=== PATIENT | male | born 1985 | race Caucasian/White ===

== ENCOUNTER 2016-11-10 13:51 | Emergency (ER) | payer OTHER ==
[2016-11-10 13:55] VITALS: BP 155/98; PULSE 102; RESP 20; TEMP 98.2
--- NOTE | 2016-11-10 14:15 | ED ---
General Adult HPI - General Chief complaint: Extremity Injury, Lower Stated complaint: left knee injury Time Seen by Provider: 11/10/16 13:58 Source: patient, RN notes reviewed Mode of arrival: wheelchair Limitations: no limitations - History of Present Illness Initial comments: Patient's 31-year-old male who presents emergency room today with chief complaint of injury to the left knee that occurred just prior to arrival. Patient does admit that he was standing on a deck when his left leg went through the sports. He states his legs date she rate and his body went to the to the left. He does admit to increased pain over the lateral anterior aspect. He does admit that it's worse with movements and with ambulation. Patient denies any other injuries or complaints. Patient denies any recent fever, chills , shortness of breath, chest pain, back pain, abdominal pain, nausea or vomiting , numbness or tingling, dysuria or hematuria, constipation or diarrhea, headaches or visual changes, or any other complaints. - Related Data Home Medications Medication Instructions Recorded Confirmed HYDROcodone/APAP 10-325MG [[place] 1 tab PO Q6HR 11/10/16 11/10/16 10-325] Previous Rx's Medication Instructions Recorded Ibuprofen [Motrin] 600 mg PO Q6HR PRN #40 day 11/10/16 Allergies Allergy/AdvReac Type Severity Reaction Status Date / Time ketorolac tromethamine AdvReac FEVER, Verified 11/10/16 14:28 [From Toradol] CHILLS tramadol AdvReac HEADACHE Verified 11/10/16 14:28 Review of Systems ROS Statement: Those systems with pertinent positive or pertinent negative responses have been documented in the HPI. ROS Other: All systems not noted in ROS Statement are negative. Past Medical History Past Medical History: Asthma Additional Past Medical History / Comment(s): back pain, previous third degree shoulder seperation. bilateral knee pain History of Any Multi-Drug Resistant Organisms: None Reported Past Surgical History: No Surgical Hx Reported Past Psychological History: No Psychological Hx Reported Smoking Status: Current every day smoker Past Alcohol Use History: Occasional Past Drug Use History: None Reported General Exam - General Exam Comments Initial Comments: General: The patient is awake and alert, in no distress, and does not appear acutely ill. Neck: The neck is supple, there is no tenderness or JVD. Cardiovascular: There is a regular rate and rhythm. No murmur, rub or gallop is appreciated. Respiratory: Lungs are clear to auscultation, respirations are non-labored, breath sounds are equal. No wheezes, stridor, rales, or rhonchi. Musculoskeletal: Normal appearance of the left knee no obvious deformity. Shows limited range of motion due to pain. It is locally tender over the anterior lateral aspect. Sensation is intact pulses equal bilaterally 2+. No bony tenderness down into the left foot and left ankle. No tenderness to the left hip. Neurological: A&O x 3. CN II-XII intact, There are no obvious motor or sensory deficits. Coordination appears grossly intact. Speech is normal. Skin: Skin is warm and dry and no rashes or lesions are noted. Psychiatric: Normal mood and affect. Limitations: no limitations Course Vital Signs 11/10/16 13:53 Temperature 98.2 F Pulse Rate 102 H Respiratory 20 Rate Blood Pressure 155/98 O2 Sat by Pulse 94 L Oximetry Medical Decision Making - Medical Decision Making X-rays reviewed and are negative for any acute fracture dislocation. Results were discussed with the patient. Patient is advised to follow-up with orthopedics for further evaluation. Advised possible ligamentous injury. Will be placed in knee immobilizer here in the emergency room. Given a prescription for crutches. Advised return to emergency room if any symptoms increase worsen or for any other concerns. Patient denies any recent fever, chills, shortness of breath, chest pain, back pain, abdominal pain, nausea or vomiting, numbness or tingling, dysuria or hematuria, constipation or diarrhea, headaches or visual changes, or any other complaints. Disposition Clinical Impression: Knee injury Disposition: HOME SELF-CARE Condition: Good Instructions: Knee Pain (ED) Additional Instructions: Please use knee immobilizer up and moving around. Please use crutches with weightbearing as tolerated. Please follow-up the orthopedics over the next 2-5 day. Please continue to ice elevate the affected area at least 4 times a day for 20 minutes at a time. Please use ibuprofen for pain. Please return to emergency room if any symptoms increase worsen or for any other concerns. Prescriptions: Ibuprofen [Motrin] 600 mg PO Q6HR PRN #40 day PRN Reason: Pain Referrals: None,Stated [Primary Care Provider] - 1-2 days Girma Garcia MD [STAFF PHYSICIAN] - 1-2 days Time of Disposition: 14:46
--- NOTE | 2016-11-10 14:26 | XR ---
EXAMINATION TYPE: XR knee complete LT DATE OF EXAM: 11/10/2016 2:20 PM CLINICAL HISTORY: pain TECHNIQUE: Three views of the left knee are obtained. COMPARISON: September 14, 2015 FINDINGS: There is no acute fracture/dislocation. The tri-compartment joint spaces appear within no rmal limits. The overlying soft tissue appears unremarkable. IMPRESSION: There is no acute fracture or dislocation ICD 10 NO FRACTURE, INITIAL EVALUATION
== END 2016-11-10 14:58 | disposition home or self-care (01) ==
LOC: EC 13:51
DX: S89.92XA Unspecified injury of left lower leg, initial encounter (principal); F17.200 Nicotine dependence, unspecified, uncomplicated; Z79.891 Long term (current) use of opiate analgesic; Z88.6 Allergy status to analgesic agent; X58.XXXA Exposure to other specified factors, initial encounter
CPT/HCPCS: 73562; 99283; L1830 ×2

== ENCOUNTER 2016-12-09 10:48 | Emergency (ER) | payer OTHER ==
[2016-12-09 10:51] VITALS: RESP 18; TEMP 98.2
[2016-12-09] MEDS ORDERED: HYDROmorphone 1 MG/ML 1 ML SYRINGE IVP STA (11:02)
[2016-12-09] MEDS ORDERED: ONDANSETRON 4 MG/2 ML VIAL IVP STA (11:02)
[2016-12-09] MEDS ORDERED: SODIUM CHLORIDE 0.9% 1,000 ML IV ONE (11:02)
--- NOTE | 2016-12-09 11:05 | ED ---
Abdominal Pain HPI - General Chief Complaint: Abdominal Pain Stated Complaint: abdominal pain Time Seen by Provider: 12/09/16 10:54 Source: patient, RN notes reviewed Mode of arrival: wheelchair Limitations: no limitations - History of Present Illness Initial Comments: Patient is a 31-year-old male presents to the emergency room for evaluation of nausea and abdominal pain. Patient states pain began about 30 minutes ago. Patient states yesterday began with vomiting and diarrhea. Patient states when the pain began began vomiting. Patient states he's having severe pain in his right lower quadrant. Patient states the pain is worse when he presses over the area. Patient denies history of abdominal surgeries. Patient denies fevers or chills. Patient denies chest pain or shortness of breath. Patient denies blood in stools. Patient denies pain or burning during urination, trouble urinating or blood in urine. Patient denies history of kidney stone. Patient denies any back or flank pain. - Related Data Home Medications Medication Instructions Recorded Confirmed HYDROcodone/APAP 10-325MG [[place] 1 tab PO QID PRN 11/10/16 12/09/16 10-325] Previous Rx's Medication Instructions Recorded Dicyclomine [Bentyl] 10 mg PO TID PRN #12 capsule 12/09/16 Ondansetron Odt [Zofran Odt] 4 mg PO Q8HR PRN #12 tab 12/09/16 Allergies Allergy/AdvReac Type Severity Reaction Status Date / Time ketorolac tromethamine AdvReac FEVER, Verified 12/09/16 11:38 [From Toradol] CHILLS tramadol AdvReac HEADACHE Verified 12/09/16 11:38 Review of Systems ROS Statement: Those systems with pertinent positive or pertinent negative responses have been documented in the HPI. ROS Other: All systems not noted in ROS Statement are negative. Past Medical History Past Medical History: Asthma Additional Past Medical History / Comment(s): back pain, previous third degree shoulder seperation. bilateral knee pain History of Any Multi-Drug Resistant Organisms: None Reported Past Surgical History: No Surgical Hx Reported Past Psychological History: No Psychological Hx Reported Smoking Status: Current every day smoker Past Alcohol Use History: Occasional Past Drug Use History: None Reported General Exam - General Exam Comments Initial Comments: laying in exam room, no distress. Limitations: no limitations General appearance: alert, in no apparent distress Head exam: Present: atraumatic, normocephalic, normal inspection Eye exam: Present: normal appearance ENT exam: Present: normal exam Neck exam: Present: normal inspection Respiratory exam: Present: normal lung sounds bilaterally. Absent: respiratory distress Cardiovascular Exam: Present: regular rate, normal rhythm, normal heart sounds GI/Abdominal exam: Present: soft, tenderness (right lower quadrant), normal bowel sounds. Absent: distended, guarding, rebound, rigid Extremities exam: Present: normal inspection Back exam: Present: normal inspection Neurological exam: Present: alert, oriented X3, CN II-XII intact, normal gait Psychiatric exam: Present: normal affect, normal mood Skin exam: Present: warm, dry, intact, normal color. Absent: rash Course Vital Signs 12/09/16 12/09/16 10:49 12:48 Temperature 98.2 F 98.2 F Pulse Rate 75 67 Respiratory 18 18 Rate Blood Pressure 119/73 112/66 O2 Sat by Pulse 97 98 Oximetry Medical Decision Making - Medical Decision Making patient is a 31-year-old male presents emergency room for evaluation abdominal pain, nausea and vomiting. Labs show no concerning findings. CT negative for signs of appendicitis. Patient was sent home with Zofran and fentanyl and advised follow-up with primary care provider. Advised patient to return for worsening symptoms. Patient states he understands everything that was discussed with him. Case discussed with Dr. Martin. - Lab Data Result diagrams: 12/09/16 11:10 12/09/16 11:10 Lab Results 12/09/16 12/09/16 12/09/16 Range/Units 11:10 11:10 11:42 WBC 8.3 (3.8-10.6) k/uL RBC 4.74 (4.30-5.90) m/uL Hgb 15.1 (13.0-17.5) gm/dL Hct 44.5 (39.0-53.0) % MCV 93.9 (80.0-100.0) fL MCH 31.8 (25.0-35.0) pg MCHC 33.9 (31.0-37.0) g/dL RDW 13.1 (11.5-15.5) % Plt Count 177 (150-450) k/uL Neutrophils % 75 % Lymphocytes % 18 % Monocytes % 5 % Eosinophils % 2 % Basophils % 0 % Neutrophils # 6.2 (1.3-7.7) k/uL Lymphocytes # 1.5 (1.0-4.8) k/uL Monocytes # 0.4 (0-1.0) k/uL Eosinophils # 0.1 (0-0.7) k/uL Basophils # 0.0 (0-0.2) k/uL Sodium 143 (137-145) mmol/L Potassium 4.2 (3.5-5.1) mmol/L Chloride 111 H (98-107) mmol/L Carbon Dioxide 24 (22-30) mmol/L Anion Gap 8 mmol/L BUN 14 (9-20) mg/dL Creatinine 0.90 (0.66-1.25) mg/dL Est GFR (MDRD) Af Amer >60 (>60 ml/min/1.73 sqM) Est GFR (MDRD) Non-Af >60 (>60 ml/min/1.73 sqM) Glucose 114 H (74-99) mg/dL Calcium 9.1 (8.4-10.2) mg/dL Total Bilirubin 0.3 (0.2-1.3) mg/dL AST 19 (17-59) U/L ALT 34 (21-72) U/L Alkaline Phosphatase 67 (38-126) U/L Total Protein 6.1 L (6.3-8.2) g/dL Albumin 3.4 L (3.5-5.0) g/dL Amylase 37 (30-110) U/L Lipase 56 (23-300) U/L Urine Color Yellow Urine Appearance Clear (Clear) Urine pH 7.5 (5.0-8.0) Ur Specific [place] 1.017 (1.001-1.035) Urine Protein Negative (Negative) Urine Glucose (UA) Negative (Negative) Urine Ketones Negative (Negative) Urine Blood Negative (Negative) Urine Nitrite Negative (Negative) Urine Bilirubin Negative (Negative) Urine Urobilinogen <2.0 (<2.0) mg/dL Ur Leukocyte Esterase Negative (Negative) - Radiology Data Radiology results: report reviewed, image reviewed Disposition Clinical Impression: Abdominal pain, Nausea & vomiting Disposition: HOME SELF-CARE Condition: Good Instructions: Acute Nausea and Vomiting (ED), Abdominal Pain (ED) Additional Instructions: Take Zofran as needed for nausea. Drink plenty of fluids. Please follow up with primary care provider in 1-2 days. If any new symptom arises or symptoms worsen , return to ER as soon as possible. Prescriptions: Ondansetron Odt [Zofran Odt] 4 mg PO Q8HR PRN #12 tab PRN Reason: Nausea Dicyclomine [Bentyl] 10 mg PO TID PRN #12 capsule PRN Reason: Pain Referrals: None,Stated [Primary Care Provider] - 1-2 days Time of Disposition: 12:32
[2016-12-09 11:20] LABS: Basophils % (A) 0 %; CH 32.6; CHCM 34.9; Eosinophils # (A) 0.1 k/uL (0-0.7); Eosinophils % (A) 2 %; HCT 44.5 % (39.0-53.0); HGB 15.1 gm/dL (13.0-17.5); Luc # (Auto) 0.08; Luc % (Auto) 1; Lymphocytes # (A) 1.5 k/uL (1.0-4.8); Lymphocytes % (A) 18 %; MCH 31.8 pg (25.0-35.0); MCHC 33.9 g/dL (31.0-37.0); MCV 93.9 fL (80.0-100.0); Mean Platelet Volume 6.9; Monocytes # (A) 0.4 k/uL (0-1.0); Monocytes % (A) 5 %; Neutrophils # (A) 6.2 k/uL (1.3-7.7); Neutrophils % (A) 75 %; RBC 4.74 m/uL (4.30-5.90); RDW 13.1 % (11.5-15.5); WBC 8.3 k/uL (3.8-10.6); WBC (Perox) 7.77
[2016-12-09 11:34] LABS: ALT 34 U/L (21-72); AST 19 U/L (17-59); Alkaline Phosphatase 67 U/L (38-126); Amylase 37 U/L (30-110); Anion Gap 8 mmol/L; Blood Urea Nitrogen 14 mg/dL (9-20); Calcium 9.1 mg/dL (8.4-10.2); Carbon Dioxide 24 mmol/L (22-30); Chloride 111 mmol/L (98-107); Glucose 114 mg/dL (74-99); Non-African American GFR(MDRD) >60 (>60 ml/min/1.73 sqM); Potassium 4.2 mmol/L (3.5-5.1); Sodium 143 mmol/L (137-145); Total Bilirubin 0.3 mg/dL (0.2-1.3); Total Protein 6.1 g/dL (6.3-8.2)
[2016-12-09 11:54] LABS: Appearance,Urine Clear (Clear); Bilirubin,Urine Negative (Negative); Glucose,Urine (UA) Negative (Negative); Ketones,Urine Negative (Negative); Leukocyte Esterase,Urine Negative (Negative); Nitrite,Urine Negative (Negative); PH, Urine 7.5 (5.0-8.0); Protein,Urine Negative (Negative); Specific Gravity,Urine 1.017 (1.001-1.035); UA Billing (MACRO vs. MICRO) CHEM; Urobilinogen,Urine <2.0 mg/dL (<2.0)
[2016-12-09] MEDS ORDERED: RX INFO: IV CONTRAST WAS GIVEN 1 EACH MISC MISCELLANE PRN (11:57)
--- NOTE | 2016-12-09 12:31 | CT ---
EXAMINATION TYPE: CT abdomen pelvis w con DATE OF EXAM: 12/09/2016 12:26 PM COMPARISON: NONE HISTORY: abdominal pain CT DLP: 3477.7 mGycm Automated exposure control for dose reduction was used. TECHNIQUE: Helical acquisition of images was performed from the lung bases through the pelvis. CONTRAST: Performed without Oral Contrast and with IV Contrast, patient injected with 100 mL of Omnipaque 300. FINDINGS: Lung bases are clear of consolidation. There is no pleural effusion. Liver spleen pancreas gallbladde r appear normal. Bile ducts are not dilated. There is no adrenal mass. Kidneys show satisfactory cont rast opacification. There is no hydronephrosis. There is no retroperitoneal adenopathy. There is no a scites. I see no intestinal wall thickening. There are no dilated loops. Appendix appears normal. The re is no evidence of a bony destructive process. Bladder distends smoothly. There is no sign of a pel beto mass. IMPRESSION: NEGATIVE CT SCAN OF THE ABDOMEN AND PELVIS.
[2016-12-09 12:50] VITALS: BP 112/66; PULSE 67
== END 2016-12-09 12:49 | disposition home or self-care (01) ==
LOC: EC 10:48
DX: R10.31 Right lower quadrant pain (principal); R11.2 Nausea with vomiting, unspecified; R19.7 Diarrhea, unspecified; F17.200 Nicotine dependence, unspecified, uncomplicated; Z88.6 Allergy status to analgesic agent
CPT/HCPCS: 80053; 82150; 83690; 85025; 81003; 74177; 99284; 96374; 96375; 96361; J2405; J1170; Q9967

== ENCOUNTER 2017-03-09 10:54 | Emergency (ER) | payer OTHER ==
--- NOTE | 2017-03-09 11:57 | ED ---
General Adult HPI - General Chief complaint: Extremity Problem,Nontraumatic Stated complaint: fluid retention Time Seen by Provider: 03/09/17 11:38 Source: patient Mode of arrival: ambulatory Limitations: no limitations - History of Present Illness Initial comments: Patient is an obese 32-year-old male who presents to the ED via private vehicle for evaluation of bilateral lower extremity swelling. 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 Patient states that over the past few days he has noticed swelling of his lower extremities worse at his ankles. Has no history of previous swelling like this. He reports that today the skin around his ankles began to feel very tight which prompted him to come in to the ED. Patient denies any fevers, chills, nausea, vomiting, gait disturbance or paresthesias. Patient states that approximately 4 years ago he was told he was prediabetic but since then has not followed with primary care physician for any reason. Patient denies taking any medications. He denies any personal history of DVT or PE, he states that his grandfather had blood clots but he is not sure if there is any other family history of blood clots. He denies any recent immobilization of the limbs though he does state that he spends a lot of his stay in his car. States he has no cardiac history, no chest pain, no shortness of breath. - Related Data Home Medications Medication Instructions Recorded Confirmed HYDROcodone/APAP 10-325MG [[place] 1 tab PO QID PRN 11/10/16 03/09/17 10-325] Allergies Allergy/AdvReac Type Severity Reaction Status Date / Time ketorolac tromethamine AdvReac FEVER, Verified 03/09/17 11:45 [From Toradol] CHILLS tramadol AdvReac HEADACHE Verified 03/09/17 11:45 Review of Systems ROS Statement: Those systems with pertinent positive or pertinent negative responses have been documented in the HPI. ROS Other: All systems not noted in ROS Statement are negative. Constitutional: Denies: fever, chills Eyes: Denies: vision change Respiratory: Denies: cough, dyspnea Cardiovascular: Reports: edema. Denies: chest pain, palpitations, dyspnea on exertion, paroxysmal nocturnal dyspnea Endocrine: Denies: fatigue Gastrointestinal: Denies: abdominal pain, nausea, vomiting Genitourinary: Denies: dysuria Musculoskeletal: Reports: back pain (chronic, unchanged recently ) Skin: Reports: lesions (flea bites on bilateral lower extremities) Neurological: Denies: headache, weakness, numbness, paresthesias, abnormal gait Psychiatric: Denies: anxiety Hematological/Lymphatic: Denies: easy bleeding, easy bruising Past Medical History Past Medical History: Asthma Additional Past Medical History / Comment(s): back pain, previous third degree shoulder seperation. bilateral knee pain History of Any Multi-Drug Resistant Organisms: None Reported Past Surgical History: No Surgical Hx Reported Past Psychological History: No Psychological Hx Reported Smoking Status: Current every day smoker Past Alcohol Use History: Occasional Past Drug Use History: None Reported General Exam Limitations: no limitations General appearance: alert, in no apparent distress, obese Head exam: Present: atraumatic, normocephalic Eye exam: Present: normal appearance ENT exam: Present: normal exam Neck exam: Present: normal inspection. Absent: meningismus Respiratory exam: Present: normal lung sounds bilaterally. Absent: respiratory distress Cardiovascular Exam: Present: regular rate, normal rhythm, normal heart sounds, other (radial, PT, DP pulses 3+) GI/Abdominal exam: Present: soft, normal bowel sounds. Absent: distended, tenderness, guarding, rebound, rigid Rectal exam: Present: deferred Extremities exam: Present: full ROM, normal capillary refill, pedal edema. Absent: tenderness, joint swelling, calf tenderness Back exam: Present: paraspinal tenderness Neurological exam: Present: alert, oriented X3, CN II-XII intact Psychiatric exam: Present: normal affect, normal mood Skin exam: Present: warm, dry, intact, normal color. Absent: rash Course Vital Signs 03/09/17 03/09/17 11:12 13:32 Temperature 97.3 F L 96.9 F L Pulse Rate 83 74 Respiratory 20 16 Rate Blood Pressure 131/72 149/76 O2 Sat by Pulse 98 97 Oximetry Medical Decision Making - Medical Decision Making Patient was seen and examined, patient was sleeping comfortably in the ER prior to being examined. He states that he worked last night is very tired. History was obtained from the patient As ago exam and history are consistent with venous stasis, however given there is a family history of DVTs I will order bilateral venous duplex for evaluation of possible clot. Physical exam with no erythema or skin changes suggestive of cellulitis or infection. Patient does have multiple small red spots on his leg which he advises or flea bites. None appear to be abscessed or cellulitic. 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 I advised the patient to sleep with his legs elevated on pillows. I also discussed with the patient that he would benefit from weight loss. She has pertaining to care were answered to the best my ability and the patient was discharged home and advised to follow up with primary care physician or to return to the ED for any acute worsening. - Lab Data Result diagrams: 03/09/17 12:03 03/09/17 12:03 Lab Results 03/09/17 03/09/17 03/09/17 Range/Units 12:03 12:03 12:03 WBC 9.3 (3.8-10.6) k/uL RBC 4.59 (4.30-5.90) m/uL Hgb 15.1 (13.0-17.5) gm/dL Hct 41.7 (39.0-53.0) % MCV 90.8 (80.0-100.0) fL MCH 33.0 (25.0-35.0) pg MCHC 36.3 (31.0-37.0) g/dL RDW 12.9 (11.5-15.5) % Plt Count 206 (150-450) k/uL Neutrophils % 54 % Lymphocytes % 33 % Monocytes % 6 % Eosinophils % 5 % Basophils % 1 % Neutrophils # 5.0 (1.3-7.7) k/uL Lymphocytes # 3.1 (1.0-4.8) k/uL Monocytes # 0.6 (0-1.0) k/uL Eosinophils # 0.4 (0-0.7) k/uL Basophils # 0.1 (0-0.2) k/uL Sodium 141 (137-145) mmol/L Potassium 4.1 (3.5-5.1) mmol/L Chloride 107 (98-107) mmol/L Carbon Dioxide 26 (22-30) mmol/L Anion Gap 8 mmol/L BUN 15 (9-20) mg/dL Creatinine 1.06 (0.66-1.25) mg/dL Est GFR (MDRD) Af Amer >60 (>60 ml/min/1.73 sqM) Est GFR (MDRD) Non-Af >60 (>60 ml/min/1.73 sqM) Glucose 94 (74-99) mg/dL Calcium 8.9 (8.4-10.2) mg/dL NT-Pro-B Natriuret Pep <11 pg/mL Disposition Clinical Impression: Bilateral lower extremity edema Disposition: HOME SELF-CARE Condition: Good Instructions: Leg Edema (ED) Referrals: None,Stated [Primary Care Provider] - 1-2 days Decision Time: 13:27
[2017-03-09 12:12] LABS: Basophils # (A) 0.1 k/uL (0-0.2); Basophils % (A) 1 %; CH 32.1; CHCM 35.5; Eosinophils # (A) 0.4 k/uL (0-0.7); Eosinophils % (A) 5 %; HCT 41.7 % (39.0-53.0); HDW 2.88; HGB 15.1 gm/dL (13.0-17.5); Luc # (Auto) 0.17; Luc % (Auto) 2; Lymphocytes # (A) 3.1 k/uL (1.0-4.8); Lymphocytes % (A) 33 %; MCHC 36.3 g/dL (31.0-37.0); MCV 90.8 fL (80.0-100.0); Mean Platelet Volume 6.9; Monocytes # (A) 0.6 k/uL (0-1.0); Monocytes % (A) 6 %; Neutrophils % (A) 54 %; RBC 4.59 m/uL (4.30-5.90); RDW 12.9 % (11.5-15.5); WBC 9.3 k/uL (3.8-10.6); WBC (Perox) 9.24
[2017-03-09 12:28] LABS: Anion Gap 8 mmol/L; Blood Urea Nitrogen 15 mg/dL (9-20); Calcium 8.9 mg/dL (8.4-10.2); Carbon Dioxide 26 mmol/L (22-30); Chloride 107 mmol/L (98-107); Glucose 94 mg/dL (74-99); Non-African American GFR(MDRD) >60 (>60 ml/min/1.73 sqM); Potassium 4.1 mmol/L (3.5-5.1); Sodium 141 mmol/L (137-145)
--- NOTE | 2017-03-09 13:14 | US ---
EXAMINATION TYPE: US venous doppler duplex LE BI DATE OF EXAM: 03/09/2017 12:48 PM COMPARISON: NONE CLINICAL HISTORY: 32-year-old male Pain. Bilateral ankle swelling SIDE PERFORMED: Bilateral TECHNIQUE: The lower extremity deep venous system is examined utilizing real time linear array sonog josey with graded compression, doppler sonography and color-flow sonography. FINDINGS: VESSELS IMAGED: External Iliac Vein (EIV) Common Femoral Vein Deep Femoral Vein Greater Saphenous Vein * Femoral Vein Popliteal Vein Small Saphenous Vein * Proximal Calf Veins (* superficial vessels) Right Leg: Negative for DVT Left Leg: Negative for DVT IMPRESSION: No evidence for DVT within the bilateral lower extremities imaged from the groin to the upper calves.
[2017-03-09 13:33] VITALS: BP 149/76; PULSE 74; RESP 16; TEMP 96.9
== END 2017-03-09 13:38 | disposition home or self-care (01) ==
LOC: EC 10:54
DX: R60.0 Localized edema (principal); S80.861A Insect bite (nonvenomous), right lower leg, initial encounter; S80.862A Insect bite (nonvenomous), left lower leg, initial encounter; E66.9 Obesity, unspecified; F17.200 Nicotine dependence, unspecified, uncomplicated; Z88.6 Allergy status to analgesic agent; W57.XXXA Bitten or stung by nonvenomous insect and other nonvenomous arthropods, initial encounter
CPT/HCPCS: 36415; 80048; 83880; 85025; 93970; 99284

== ENCOUNTER 2017-05-18 15:19 | Emergency (ER) | payer OTHER ==
[2017-05-18 15:44] VITALS: BP 142/84; PULSE 76; RESP 16; TEMP 97.8
--- NOTE | 2017-05-18 16:56 | ED ---
General Adult HPI - General Chief complaint: Psychiatric Symptoms Stated complaint: Drug Withdrawls Time Seen by Provider: 05/18/17 16:40 Source: patient, RN notes reviewed Mode of arrival: ambulatory Limitations: no limitations - History of Present Illness Initial comments: 32-year-old male presents to the emergency department with a chief complaint of of wanting help for narcotic abuse. Patient states that he abuses narcotic medication. Patient states his last pill was today. Patient denies any complaints at this time but he states that he needs help. Patient states that he is not suicidal or homicidal. Patient denies any other concerns. Patient denies any recent fever, chills, shortness of breath, chest pain, back pain, abdominal pain, nausea vomiting, numbness or tingling, dysuria or hematuria, constipation or diarrhea, headaches or visual changes, or any other current symptoms. - Related Data Home Medications Medication Instructions Recorded Confirmed HYDROcodone/APAP 10-325MG [[place] 1 tab PO QID PRN 11/10/16 03/09/17 10-325] Previous Rx's Medication Instructions Recorded Ondansetron Odt [Zofran ODT] 4 mg PO Q8HR PRN #20 tab 05/18/17 Allergies Allergy/AdvReac Type Severity Reaction Status Date / Time ketorolac tromethamine AdvReac FEVER, Verified 05/18/17 15:44 [From Toradol] CHILLS tramadol AdvReac HEADACHE Verified 05/18/17 15:44 Review of Systems ROS Statement: Those systems with pertinent positive or pertinent negative responses have been documented in the HPI. ROS Other: All systems not noted in ROS Statement are negative. Past Medical History Past Medical History: Asthma Additional Past Medical History / Comment(s): back pain, previous third degree shoulder seperation. bilateral knee pain History of Any Multi-Drug Resistant Organisms: None Reported Past Surgical History: No Surgical Hx Reported Past Psychological History: No Psychological Hx Reported Smoking Status: Current every day smoker Past Alcohol Use History: Occasional Past Drug Use History: None Reported General Exam Limitations: no limitations General appearance: alert, in no apparent distress Eye exam: Present: normal appearance, PERRL, EOMI. Absent: scleral icterus, conjunctival injection, periorbital swelling ENT exam: Present: normal exam, mucous membranes moist Neck exam: Present: normal inspection. Absent: tenderness, meningismus, lymphadenopathy Respiratory exam: Present: normal lung sounds bilaterally. Absent: respiratory distress, wheezes, rales, rhonchi, stridor Cardiovascular Exam: Present: regular rate, normal rhythm, normal heart sounds. Absent: systolic murmur, diastolic murmur, rubs, gallop, clicks Back exam: Present: normal inspection Neurological exam: Present: alert, oriented X3 Psychiatric exam: Present: normal affect, normal mood Skin exam: Present: warm, dry, intact, normal color. Absent: rash Course Vital Signs 05/18/17 15:41 Temperature 97.8 F Pulse Rate 76 Respiratory 16 Rate Blood Pressure 142/84 O2 Sat by Pulse 95 Oximetry Medical Decision Making - Medical Decision Making 32-year-old male seeks help for narcotic abuse treatment. This time we gave him an patient outpatient referral forms we did give him a [facility] will give him Zofran for home. We discussed follow-up we discussed staying off of the medication. We discussed return parameters all questions. He stated he understood and he is feeling an. At this time we will be discharged. Disposition Clinical Impression: Narcotic abuse Disposition: HOME SELF-CARE Condition: Stable Instructions: Narcotic Abuse (ED), Opioid Withdrawal (ED) Additional Instructions: Please use medication as discussed. Please follow up with family doctor if symptoms have not improved over the next two days. Please return to the emergency room if your symptoms increase or worsen or for any other concerns. Prescriptions: Ondansetron Odt [Zofran ODT] 4 mg PO Q8HR PRN #20 tab PRN Reason: Nausea Referrals: Kyle Phelan DO [STAFF PHYSICIAN] - 1-2 days Time of Disposition: 16:55
[2017-05-18] MEDS ORDERED: cloNIDine 0.1 MG/24HR PATCH 1 PATCH PATCH TRANSDERM ONE (17:00)
== END 2017-05-18 17:39 | disposition home or self-care (01) ==
LOC: EC 15:19
DX: F11.10 Opioid abuse, uncomplicated (principal); F17.200 Nicotine dependence, unspecified, uncomplicated; Z88.5 Allergy status to narcotic agent; Z88.6 Allergy status to analgesic agent
CPT/HCPCS: 99283

== ENCOUNTER 2017-06-22 01:36 | Emergency (ER) | payer OTHER ==
[2017-06-22 01:41] VITALS: BP 134/96; PULSE 91; RESP 18; TEMP 96.8
[2017-06-22] MEDS ORDERED: PENICILLIN VK 500MG STARTER 4 TAB BTL PO STA (02:15)
[2017-06-22] MEDS ORDERED: ACET/COD 300 MG/30 MG STARTER PACK 6 TAB BTL PO STA (02:16)
--- NOTE | 2017-06-22 02:17 | ED ---
ENT HPI - General Chief complaint: Dental/Oral Stated complaint: Dental Pain Time Seen by Provider: 06/22/17 01:56 Source: patient, RN notes reviewed, old records reviewed Mode of arrival: ambulatory Limitations: no limitations - History of Present Illness Initial comments: Pt is a 32 year old male with CC of dental pain and broken tooth over this left molar. Patient reports he broke his tooth 3 months ago, he states he has not seen a dentist. REports the pain is worse over the past 2 days. Patient states that his gum is swelling. Denies trismus, fevers or chills. Denies any other symptoms. - Related Data Previous Rx's Medication Instructions Recorded Penicillin V Potassium [Pen Vee K] 500 mg PO QID #40 tablet 06/22/17 Allergies Allergy/AdvReac Type Severity Reaction Status Date / Time ketorolac tromethamine AdvReac FEVER, Verified 05/18/17 17:02 [From Toradol] CHILLS tramadol AdvReac HEADACHE Verified 05/18/17 17:02 Review of Systems ROS Statement: Those systems with pertinent positive or pertinent negative responses have been documented in the HPI. ROS Other: All systems not noted in ROS Statement are negative. Constitutional: Denies: fever, chills Eyes: Denies: eye pain ENT: Reports: dental pain. Denies: ear pain, throat pain, hearing loss, epistaxis Respiratory: Denies: cough Cardiovascular: Denies: chest pain Endocrine: Denies: fatigue Gastrointestinal: Denies: abdominal pain Genitourinary: Denies: urgency Musculoskeletal: Denies: back pain Skin: Denies: rash, lesions Neurological: Denies: headache, weakness Psychiatric: Denies: anxiety Past Medical History Past Medical History: Asthma Additional Past Medical History / Comment(s): back pain, previous third degree shoulder seperation. bilateral knee pain History of Any Multi-Drug Resistant Organisms: None Reported Past Surgical History: No Surgical Hx Reported Past Psychological History: No Psychological Hx Reported Smoking Status: Current every day smoker Past Alcohol Use History: Occasional Past Drug Use History: None Reported General Exam - General Exam Comments Initial Comments: Patient is alert and oriented 32 year old male, no distress. Limitations: no limitations General appearance: alert, in no apparent distress Head exam: Present: atraumatic, normocephalic, normal inspection Eye exam: Present: normal appearance, PERRL, EOMI. Absent: scleral icterus, conjunctival injection, periorbital swelling ENT exam: Present: normal exam, mucous membranes moist, other (broken tooth number 19. Gum swelling. ) Neck exam: Present: normal inspection. Absent: tenderness, meningismus, lymphadenopathy Respiratory exam: Present: normal lung sounds bilaterally. Absent: respiratory distress, wheezes, rales, rhonchi, stridor Cardiovascular Exam: Present: regular rate, normal rhythm, normal heart sounds. Absent: systolic murmur, diastolic murmur, rubs, gallop, clicks GI/Abdominal exam: Present: soft, normal bowel sounds. Absent: distended, tenderness, guarding, rebound, rigid Extremities exam: Present: normal inspection, full ROM, normal capillary refill. Absent: tenderness, pedal edema, joint swelling, calf tenderness Back exam: Present: normal inspection Neurological exam: Present: alert, oriented X3, CN II-XII intact Psychiatric exam: Present: normal affect, normal mood Skin exam: Present: warm, dry, intact, normal color. Absent: rash Course Vital Signs 06/22/17 01:39 Temperature 96.8 F L Pulse Rate 91 Respiratory 18 Rate Blood Pressure 134/96 O2 Sat by Pulse 94 L Oximetry Medical Decision Making - Medical Decision Making Patient is a 32 year old amel with CC of gum swelling and pain over fractured tooth 19. Patient states that it was fractured 3 months ago, he plans to see a dentist. Patient will be started on pen V K for dental infection, advised to follow up with PCP and dentist. Patient understands treatment plan and will comply. Discussed motrin and tylenol for pain, patient has previous visit in which he was searching for help for opiate addiction. REturn parameters discussed. Disposition Clinical Impression: Broken tooth, Dental infection Disposition: HOME SELF-CARE Condition: Good Instructions: Dental Caries (ED), Toothache (ED) Additional Instructions: [facility] [address] [place] [address] [phone] (existing clients only) For new clients: [phone] 1st consult: $50 (includes Xrays) Usually 30% less then private dentist for visits after. [employer] Have to pay $50 for Xrays anmd rest is covered. [phone] Prescriptions: Penicillin V Potassium [Pen Vee K] 500 mg PO QID #40 tablet Referrals: None,Stated [Primary Care Provider] - 1-2 days Time of Disposition: 02:16
== END 2017-06-22 02:33 | disposition home or self-care (01) ==
LOC: EC 01:36
DX: K04.7 Periapical abscess without sinus (principal); S02.5XXD Fracture of tooth (traumatic), subsequent encounter for fracture with routine healing; F17.200 Nicotine dependence, unspecified, uncomplicated; Z88.5 Allergy status to narcotic agent; Z88.6 Allergy status to analgesic agent; X58.XXXD Exposure to other specified factors, subsequent encounter
CPT/HCPCS: 99283

== ENCOUNTER 2017-10-26 07:00 | Emergency (ER) | payer OTHER ==
[2017-10-26 07:11] VITALS: RESP 16; TEMP 97.3
[2017-10-26] MEDS ORDERED: IBUPROFEN 800 MG TAB PO STA (07:40)
[2017-10-26] MEDS ORDERED: predniSONE 50 MG TAB PO STA (07:40)
--- NOTE | 2017-10-26 07:44 | ED ---
Neck Injury/Pain HPI - General Chief Complaint: Neck Pain/Injury Stated Complaint: neck pain,arm tingling Time Seen by Provider: 10/26/17 07:10 Source: patient, RN notes reviewed Mode of arrival: wheelchair Limitations: no limitations - History of Present Illness Initial Comments: Dizzy 32-year-old male with a history of right shoulder separation many years ago who states he slipped and fell at work a few weeks ago and that he did not hit his head or neck started developing pain in the right side of his neck after the incident. He initially did not have any pain he landed on his buttock he states the does feel his head went backward. He states the pain is dull right sided it radiates to his right arm he gets some tingling in the right arm is 8/10 maximum currently at 6/10 gets worse with movement and turning his neck. He states he initially did it by slipping on a wet floor at work. He denies any other injury or pain at this time. He states the pain is been on-and-off for 2 or 3 weeks. He states he cannot take Toradol but does take Motrin at home. He believes he may have had a reaction where he had a fever after taking Toradol in the past. The patient denies any urinary or fecal incontinence no focal weakness to his upper or lower extremities. MD Complaint: neck pain, other - Related Data Home Medications Medication Instructions Recorded Confirmed HYDROcodone/APAP 10-325MG [[place] 1 tab PO QID PRN 10/26/17 10/26/17 10-325] Previous Rx's Medication Instructions Recorded Cyclobenzaprine [Flexeril] 10 mg PO TID #14 tab 10/26/17 Ibuprofen 800 mg PO Q6HR PRN #20 tablet 10/26/17 predniSONE 20 mg PO BID #10 tab 10/26/17 Allergies Allergy/AdvReac Type Severity Reaction Status Date / Time ketorolac tromethamine AdvReac FEVER, Verified 10/26/17 08:11 [From Toradol] CHILLS tramadol AdvReac HEADACHE Verified 10/26/17 08:11 Review of Systems ROS Statement: Those systems with pertinent positive or pertinent negative responses have been documented in the HPI. ROS Other: All systems not noted in ROS Statement are negative. Past Medical History Past Medical History: Asthma Additional Past Medical History / Comment(s): back pain, previous third degree shoulder seperation. bilateral knee pain History of Any Multi-Drug Resistant Organisms: None Reported Past Surgical History: No Surgical Hx Reported Past Psychological History: No Psychological Hx Reported Smoking Status: Current every day smoker Past Alcohol Use History: Occasional Past Drug Use History: None Reported General Exam - General Exam Comments Initial Comments: This is a well-developed well-nourished awake alert oriented 3 male Limitations: no limitations General appearance: alert Head exam: Present: atraumatic, normocephalic, normal inspection Eye exam: Present: normal appearance, PERRL, EOMI. Absent: scleral icterus, conjunctival injection, periorbital swelling ENT exam: Present: normal exam Neck exam: Present: normal inspection, tenderness, full ROM, other (Tenderness palpation of the right paraspinous muscles and right trapezius musculature. Palpation does reproduce the patient's pain and tenderness.). Absent: meningismus, lymphadenopathy Respiratory exam: Present: normal lung sounds bilaterally. Absent: respiratory distress, wheezes, rales, rhonchi, stridor Cardiovascular Exam: Present: regular rate, normal rhythm, normal heart sounds. Absent: systolic murmur, diastolic murmur, rubs, gallop, clicks Rectal exam: Present: deferred Extremities exam: Present: normal inspection, full ROM, normal capillary refill , other (There is evidence of the before meals separation the patient mentioned in his history). Absent: tenderness, pedal edema, joint swelling, calf tenderness Back exam: Present: normal inspection Neurological exam: Present: alert, oriented X3, CN II-XII intact Psychiatric exam: Present: normal affect, normal mood Skin exam: Present: warm, dry, intact, normal color. Absent: rash Course Vital Signs 10/26/17 10/26/17 07:07 08:25 Temperature 97.3 F L Pulse Rate 80 77 Respiratory 16 16 Rate Blood Pressure 132/74 132/82 O2 Sat by Pulse 95 98 Oximetry Medical Decision Making - Medical Decision Making I did discuss findings with patient he is feeling somewhat improved I read he will be discharged on examination of oral steroids and anti-inflammatories he currently is under a pain contract and does not want narcotic pain medication. Again he does take Motrin at home without difficulty. - EKG Data -: EKG Interpreted by Me EKG shows normal: sinus rhythm (Normal sinus rhythm of 72 WI interval 164 QRS 82 QT since QTC of 370/413 evidence of early repolarization no acute ST-T wave changes.) - Radiology Data Radiology results: report reviewed (I did review the imaging and report no acute findings there is some evidence of possible focal right-sided neural foraminal narrowing at C4 5 level.), image reviewed Disposition Clinical Impression: Strain of neck muscle, Musculoskeletal pain Disposition: HOME SELF-CARE Condition: Good Instructions: Cervical Strain (ED), Neck Pain (ED), Musculoskeletal Pain (ED) Prescriptions: Cyclobenzaprine [Flexeril] 10 mg PO TID #14 tab Ibuprofen 800 mg PO Q6HR PRN #20 tablet PRN Reason: Pain predniSONE 20 mg PO BID #10 tab Referrals: Tanvir Nolen MD [Primary Care Provider] - 1-2 days
--- NOTE | 2017-10-26 08:25 | XR ---
EXAMINATION TYPE: XR cervical spine comp DATE OF EXAM: 10/26/2017 TECHNIQUE: Frontal, lateral, oblique, and open mouth view of the cervical spine are obtained. HISTORY: Pain per order. Fall injury 4 weeks ago per patient with pain going down right arm. COMPARISON: Cervical spine x-ray March 04, 2013. FINDINGS: The cervical spine is visualized in its entirety from C1 thru the top of T1 level, it rede monstrates straightened alignment without evidence of acute fracture or dislocation. The pre-vertebr al soft tissue appears within normal limits. The C1-C2 articulation is within normal limits on the o pen mouth view. Vertebral body heights and disc space heights are maintained. There appears to be pinky e right-sided neural foraminal narrowing C4-C5 level due to uncovertebral facet arthropathy on the ob lique image. Overlying soft tissue is unremarkable. IMPRESSION: No acute fracture or dislocation is seen in the cervical spine. Possible focal right-michelle ed neural foraminal narrowing C4-C5 level appreciated on oblique image.
[2017-10-26 08:26] VITALS: BP 132/82; PULSE 77
== END 2017-10-26 08:43 | disposition home or self-care (01) ==
LOC: EC 07:00
DX: S16.1XXA Strain of muscle, fascia and tendon at neck level, initial encounter (principal); F17.200 Nicotine dependence, unspecified, uncomplicated; Z88.6 Allergy status to analgesic agent; W01.0XXA Fall on same level from slipping, tripping and stumbling without subsequent striking against object, initial encounter; Y99.0 Civilian activity done for income or pay; Y93.89 Activity, other specified
CPT/HCPCS: 99283; 93005; 72050; J7512

== ENCOUNTER → 2017-10-26 | Outpatient (CLI) | payer OTHER ==
--- NOTE | 2017-10-26 07:20 | MR ---
EXAMINATION TYPE: MR knee RT wo con DATE OF EXAM: 10/26/2017 6:55 AM COMPARISON: NONE HISTORY: Sprain of unspecified site of right knee TECHNIQUE: Multiplanar, multisequence imaging of the right knee is performed. FINDINGS: MEDIAL MENISCUS: Anterior and posterior horns are intact without tear. Myxoid degeneration posterior horn medial meniscus. LATERAL MENISCUS: Anterior and posterior horns are intact without tear. CRUCIATE LIGAMENTS: The anterior and posterior cruciate ligaments are intact and unremarkable. COLLATERAL LIGAMENTS: The medial collateral ligament and lateral collateral ligament complex are intact and unremarkable. EXTENSOR MECHANISM: Visualized quadriceps and patellar tendons are intact. EFFUSION: No evidence for joint effusion. POPLITEAL CYST: No popliteal/ascencio cyst. TRICOMPARTMENT SPACES: The tricompartment joint spaces appear within normal limits. CARTILAGE: The articular cartilage is maintained without abnormal signal or full-thickness defect. BONE MARROW SIGNAL: No focal abnormal marrow signal is appreciated: OTHER: No additional significant abnormality is appreciated. IMPRESSION: 1. Myxoid degeneration posterior horn medial meniscus without evidence of tear. 2. Incidental bone island lateral femoral condyle.
== END | disposition home or self-care (01) ==
LOC: RADMRIMAIN 05:53
PROVIDERS: ATTEND Emergency Medicine
DX: M17.11 Unilateral primary osteoarthritis, right knee (principal); S83.91XD Sprain of unspecified site of right knee, subsequent encounter

== ENCOUNTER → 2017-11-15 | Outpatient (CLI) | payer OTHER ==
--- NOTE | 2017-11-15 15:20 | US ---
EXAMINATION TYPE: US venous doppler duplex LE RT DATE OF EXAM: 11/15/2017 2:58 PM COMPARISON: NONE CLINICAL HISTORY: R22.41 RT CALF SWELLING. SIDE PERFORMED: Right TECHNIQUE: The lower extremity deep venous system is examined utilizing real time linear array sonog josey with graded compression, doppler sonography and color-flow sonography. VESSELS IMAGED: External Iliac Vein (EIV) Common Femoral Vein Deep Femoral Vein Greater Saphenous Vein * Femoral Vein Popliteal Vein Small Saphenous Vein * Proximal Calf Veins (* superficial vessels) Grayscale, color doppler, spectral doppler imaging performed of the deep veins of the lower extremity . There is normal flow, compressibility, vascular waveforms. IMPRESSION: Right Leg: Negative for DVT
== END | disposition home or self-care (01) ==
LOC: RADUSWWP 14:22
PROVIDERS: ATTEND Emergency Medicine
DX: R22.41 Localized swelling, mass and lump, right lower limb (principal); M25.561 Pain in right knee

== ENCOUNTER 2019-02-19 15:15 | Emergency (ER) | payer OTHER ==
[2019-02-19 15:22] VITALS: RESP 19; TEMP 98.8
--- NOTE | 2019-02-19 16:12 | ED ---
General Adult HPI - General Chief complaint: Overdose Stated complaint: Overdose Time Seen by Provider: 02/19/19 15:15 Source: patient, police, EMS, RN notes reviewed Mode of arrival: EMS Limitations: no limitations - History of Present Illness Initial comments: This is a 34-year-old male who was found unresponsive beside his Vehicle when EMS arrived they gave him to Narcan he completely woke up. Patient admits to doing heroin and states she's been doing heroin. Patient states he hasn't been a while and he only try to do a little today but obviously due to much. Patient denies any complaints currently patient denies any chest pain difficulty breathing or shortness of breath. Patient denies any palpitations. Patient denies any abdominal pain patient denies nausea vomiting diarrhea. - Related Data Home Medications Medication Instructions Recorded Confirmed No Known Home Medications 02/19/19 02/19/19 Allergies Allergy/AdvReac Type Severity Reaction Status Date / Time ketorolac tromethamine AdvReac FEVER, Verified 02/19/19 15:56 [From Toradol] CHILLS tramadol AdvReac HEADACHE Verified 02/19/19 15:56 Review of Systems ROS Statement: Those systems with pertinent positive or pertinent negative responses have been documented in the HPI. ROS Other: All systems not noted in ROS Statement are negative. Past Medical History Past Medical History: Asthma Additional Past Medical History / Comment(s): back pain, previous third degree shoulder seperation. bilateral knee pain History of Any Multi-Drug Resistant Organisms: None Reported Past Surgical History: No Surgical Hx Reported Past Psychological History: No Psychological Hx Reported Smoking Status: Current every day smoker Past Alcohol Use History: None Reported Past Drug Use History: Heroin, Methamphetamine General Exam - General Exam Comments Initial Comments: GENERAL: Patient is well-developed and well-nourished. Patient is nontoxic and well-h ydrated and is in no acute distress. ENT: Neck is soft and supple. No significant lymphadenopathy is noted. Oropharynx is clear. Moist mucous membranes. Neck has full range of motion without elic iting any pain. EYES: The sclera were anicteric and conjunctiva were pink and moist. Extraocular movements were intact and pupils were equal round and reactive to light. Eyelids were unremarkable. PULMONARY: Unlabored respirations. Good breath sounds bilaterally. No audible rales rhonchi or wheezing was noted. CARDIOVASCULAR: Patient is tachycardic at about 120 beats a minute. ABDOMEN: Soft and nontender with normal bowel sounds. No palpable organomegaly was noted. There is no palpable pulsatile mass. SKIN: Skin is clear with no lesions or rashes and otherwise unremarkable. NEUROLOGIC: Patient is alert and oriented x3. Cranial nerves II through XII are grossly intact. Motor and sensory are also intact. Normal speech, volume and content. Symmetrical smile. MUSCULOSKELETAL: Normal extremities with adequate strength and full range of motion. LYMPHATICS: No significant lymphadenopathy is noted PSYCHIATRIC: Normal psychiatric evaluation. Limitations: no limitations Course Vital Signs 02/19/19 15:16 Temperature 98.8 F Pulse Rate 120 H Respiratory 19 Rate Blood Pressure 166/87 O2 Sat by Pulse 96 Oximetry Disposition Clinical Impression: Heroin overdose Disposition: HOME SELF-CARE Condition: Good Instructions (If sedation given, give patient instructions): Narcotic Use Disorder (ED) Is patient prescribed a controlled substance at d/c from ED?: No Referrals: None,Stated [Primary Care Provider] - 1-2 days Time of Disposition: 16:13
[2019-02-19 16:24] VITALS: BP 121/96; PULSE 79
== END 2019-02-19 16:24 | disposition home or self-care (01) ==
LOC: EC 15:15
DX: T40.1X1A Poisoning by heroin, accidental (unintentional), initial encounter (principal); R00.0 Tachycardia, unspecified; F17.200 Nicotine dependence, unspecified, uncomplicated; Z88.5 Allergy status to narcotic agent; Z88.6 Allergy status to analgesic agent
CPT/HCPCS: 99284

== ENCOUNTER 2020-01-29 11:00 | Emergency (ER) | payer OTHER ==
[2020-01-29 11:11] VITALS: RESP 18
--- NOTE | 2020-01-29 11:24 | ED ---
General Adult HPI - General Chief complaint: Extremity Problem,Nontraumatic Stated complaint: Left knee injury Time Seen by Provider: 01/29/20 11:13 Source: patient, RN notes reviewed, old records reviewed Mode of arrival: ambulatory Limitations: no limitations - History of Present Illness Initial comments: 35-year-old male patient was ED with chief complaint of left knee pain. Patient was has been ongoing for 1 month. Reports that when he walks he has pain in the anterior and posterior aspect of the knee. Ports that he believes that he may have gout as he previously had issues where his ankles Red and swollen. This was months ago and has since resolved. Denies any recent falls or trauma. Denies any other complaints. Systemic: Pt denies fatigue, fever/chills, rash. Pt denies weakness, night sweats, weight loss. Neuro: Pt denies headache, visual disturbances, syncope or pre-syncope. HEENT: Pt denies ocular discharge or irritation, otalgia, rhinorrhea, pharyngitis or notable lymphadenopathy. Cardiopulmonary: Pt denies chest pain, SOB, heart palpitations, dyspnea on exertion. Abdominal/GI: Pt denies abdominal pain, n/v/d. : Pt denies dysuria, burning w/ urination, frequency/urgency. Denies new onset urinary or bowel incontinence. MSK: Pt denies myalgia. Neuro: Pt denies new onset weakness, paresthesias. - Related Data Home Medications Medication Instructions Recorded Confirmed Ibuprofen [Motrin Ib] 600 mg PO Q8H PRN 01/29/20 01/29/20 Allergies Allergy/AdvReac Type Severity Reaction Status Date / Time ketorolac tromethamine AdvReac FEVER, Verified 01/29/20 11:54 [From Toradol] CHILLS tramadol AdvReac HEADACHE Verified 01/29/20 11:54 Review of Systems ROS Statement: Those systems with pertinent positive or pertinent negative responses have been documented in the HPI. ROS Other: All systems not noted in ROS Statement are negative. Past Medical History Past Medical History: Asthma Additional Past Medical History / Comment(s): back pain, previous third degree shoulder seperation. bilateral knee pain History of Any Multi-Drug Resistant Organisms: None Reported Past Surgical History: No Surgical Hx Reported Past Psychological History: No Psychological Hx Reported Smoking Status: Current every day smoker Past Alcohol Use History: None Reported, Occasional Past Drug Use History: None Reported, Heroin, Methamphetamine General Exam - General Exam Comments Initial Comments: Constitutional: NAD, AOX3, Pt has pleasant affect. HEENT: NC/AT, trachea midline, neck supple, no lymphadenopathy. Posterior pharynx non erythematous, without exudates. External ears appear normal, without discharge. Mucous membranes moist. Eyes PERRLA, EOM intact. There is no scleral icterus. No pallor noted. Cardiopulmonary: RRR, no murmurs, rubs or gallops, no JVD noted. Lungs CTAB in anterior and posterior amezquita. No peripheral edema. Abdominal exam: Abdomen soft and non-distended. Abdomen non-tender to palpation in all 4 quadrants. Bowel sounds active in LLQ. No hepatosplenomegaly. No ecchymosis Neuro: CN II-XII grossly intact. No nuchal rigidity. No raccon eyes, no reilly sign, no hemotympanum. No cervical spinal tenderness. MSK: No posterior calf tenderness bilaterally, homans sign negative bilaterally. Posterior tibialis and radial pulse +2 bilaterally. Sensation intact in upper and lower extremities. Full active ROM in upper and lower extremities, 5/5 stregnth. Anterior aspect of right knee is nontender palpation. No erythema or warmth, skin changes. Limitations: no limitations Course Vital Signs 01/29/20 11:08 Temperature 99 F Pulse Rate 114 H Respiratory 18 Rate Blood Pressure 142/80 O2 Sat by Pulse 98 Oximetry Medical Decision Making - Medical Decision Making 35-year-old male patient with CVG complaint of knee pain. Has been ongoing for 1 month. Denies any IV drug use. Denies any fevers any other complaints. Reports the pain is worse with movement and weightbearing. Patient also had a stable, afebrile. Physical exam displayed mild tenderness anterior knee. Range of motion is intact. Patient is ambulatory. Plain film negative for acute process. Also negative for DVT. Patient feeling improved with ibuprofen. We discharged with ibuprofen, outpatient primary care provider and orthopedic follow-up and return precautions. Case discussed with Dr. Martin. Disposition Clinical Impression: Knee sprain Disposition: HOME SELF-CARE Condition: Stable Instructions (If sedation given, give patient instructions): Knee Sprain (ED) Additional Instructions: Follow-up with primary care provider tomorrow. Follow-up with orthopedic consult tomorrow. May use 600 mg of ibuprofen every 8 hours. Return to ER if condition worsens. Is patient prescribed a controlled substance at d/c from ED?: No Referrals: None,Stated [Primary Care Provider] - 1-2 days Luke Chau MD [REFERRING] - 1-2 days Carlos Dinero DO [Medical Doctor] - 1-2 days
[2020-01-29] MEDS ORDERED: IBUPROFEN 800 MG TAB PO STA (11:25)
--- NOTE | 2020-01-29 12:12 | US ---
EXAMINATION TYPE: US venous doppler duplex LE LT DATE OF EXAM: 01/29/2020 12:04 PM COMPARISON: NONE CLINICAL HISTORY: pain. Pain SIDE PERFORMED: Left TECHNIQUE: The lower extremity deep venous system is examined utilizing real time linear array sonog josey with graded compression, doppler sonography and color-flow sonography. VESSELS IMAGED: External Iliac Vein (EIV) Common Femoral Vein Deep Femoral Vein Greater Saphenous Vein * Femoral Vein Popliteal Vein Small Saphenous Vein * Proximal Calf Veins (* superficial vessels Left Leg: Negative for DVT IMPRESSION: No evidence for DVT.
--- NOTE | 2020-01-29 12:58 | XR ---
EXAMINATION TYPE: XR knee 4V LT DATE OF EXAM: 01/29/2020 CLINICAL HISTORY: pain TECHNIQUE: Three views of the left knee are obtained. COMPARISON: None. FINDINGS: There is no acute fracture/dislocation. The tri-compartment joint spaces appear within no rmal limits. The overlying soft tissue appears unremarkable. IMPRESSION: There is no acute fracture or dislocation ICD 10 NO FRACTURE, INITIAL EVALUATION
[2020-01-29] MEDS ORDERED: IBUPROFEN 600 MG STARTER PACK 4 TAB BTL PO STA (13:36)
[2020-01-29 14:11] VITALS: BP 148/90; PULSE 96; TEMP 98.2
== END 2020-01-29 14:10 | disposition home or self-care (01) ==
LOC: EC 11:00
DX: S83.92XA Sprain of unspecified site of left knee, initial encounter (principal); F17.200 Nicotine dependence, unspecified, uncomplicated; Z88.6 Allergy status to analgesic agent; Z88.5 Allergy status to narcotic agent; Z87.39 Personal history of other diseases of the musculoskeletal system and connective tissue; X50.9XXA Other and unspecified overexertion or strenuous movements or postures, initial encounter
CPT/HCPCS: 99284